=== PATIENT | male | born 1995 | race Caucasian/White ===

== ENCOUNTER 2017-04-05 06:32 | Emergency (ER) | payer MEDICAID, OTHER ==
[~2017-04-05] VITALS: Ht 177.8 cm; Wt 118.0 kg
[2017-04-05] MEDS ORDERED: IBUPROFEN 600MG TABLET PO ONE (08:00)
[2017-04-05 08:07] VITALS: BP 137/95
== END 2017-04-05 09:05 | disposition home or self-care (01) ==
LOC: ER 06:33
DX: S50.11XA Contusion of right forearm, initial encounter (principal); W21.19XA Struck by other bat, racquet or club, initial encounter; Y93.89 Activity, other specified; Y99.9 Unspecified external cause status; Y92.89 Other specified places as the place of occurrence of the external cause
CPT/HCPCS: 73090; 99284

== ENCOUNTER 2019-03-01 17:04 | Emergency (ER) | payer MEDICAID, OTHER ==
[~2019-03-01] VITALS: Ht 180.3 cm; Wt 72.0 kg
[2019-03-01 17:11] VITALS: BP 142/79
== END 2019-03-01 22:14 | disposition left against medical advice (07) ==
LOC: ER 17:47
DX: R00.2 Palpitations (principal); Z53.21 Procedure and treatment not carried out due to patient leaving prior to being seen by health care provider
CPT/HCPCS: 93005